=== PATIENT | female | born 1995 | race Hispanic/Latino ===

== ENCOUNTER 2017-09-23 12:34 | Observation (INO) | payer MEDICAID ==
[2017-09-23] MEDS ORDERED: NA CHLORIDE 0.9% 1,000 ML ONE (13:31)
[2017-09-23 14:32] LABS: Urine Bacteria <20 /HPF (<20); Urine Culture Reflex Order NOT NEEDED; Urine RBC <5 /HPF (NONE SEEN)
[2017-09-23 14:32] LABS: Absolute Lymphocytes (CBC) 1.1 K/uL (0.7-4.9); Absolute Monocytes 0.3 K/uL (0.1-1.3); Absolute Neutrophil 10.3 K/uL (1.8-8.0); Basophils % 0.2 % (0-1.3); Eosinophils % 0.3 % (0-4.4); Hematocrit 39.5 % (36.0-45.0); Lymphocytes % 9.2 % (15.3-44.8); MCH 29.2 pg (27.0-35.0); MCV 88.6 fL (80-100); MPV 8.5 fL (7.6-11.3); Monocytes % 2.8 % (3.3-12.3); RBC Red Blood Cell Count 4.46 M/uL (3.86-4.86)
[2017-09-23 14:34] LABS: Urine Blood NEGATIVE (NEG); Urine Glucose NEGATIVE (NEG); Urine Protein NEGATIVE (NEG)
[2017-09-23 14:47] LABS: Bicarbonate 21 mEq/L (21-31); Glucose Level 101 mg/dL (65-120); Lipase 23 U/L (22-51); Potassium 3.7 mEq/L (3.6-5.0); Sodium Level 133 mEq/L (135-145)
--- NOTE | 2017-09-23 14:50 | RAD REPORT ---
EXAM DESCRIPTION: US - Abdomen Exam Limited - 09/23/2017 1:46 pm CLINICAL HISTORY: Abdominal pain. COMPARISON: None. FINDINGS: Multiple gallstones are present. The gallbladder wall is mildly thickened. The biliary tree is normal caliber. IMPRESSION: Cholelithiasis. Mild gallbladder wall thickening may indicate acute cholecystitis
[2017-09-23 14:53] LABS: ALT/SGPT 28 IU/L (10-60); AST/SGOT 40 IU/L (10-42); Albumin 3.4 g/dL (3.2-5.5); Alkaline Phosphatase 111 IU/L (42-121); BUN Blood Urea Nitrogen 9 mg/dL (6-20); Bilirubin Direct 0.1 mg/dL (0-0.2); Bilirubin Total 0.4 mg/dL (0.3-1.2); Protein, Total 7.6 g/dL (6.0-8.3)
--- NOTE | 2017-09-23 15:15 | EDPHYS ---
Physician Documentation [facility] Name: Yandy Wells Age: 22 yrs Sex: Female : 1995 Arrival Date: 09/23/2017 Time: 12:36 Bed 28 Private MD: out of town, doctor ED Physician Benjamin Calles HPI: 09/23 14:05 This 22 yrs old Female presents to ER via Ambulatory with complaints of 25 wks snw , Vomiting/Diarrhea. 14:05 The patient presents to the emergency department with nausea, vomiting, diarrhea. snw Onset: The symptoms/episode began/occurred suddenly, yesterday. Possible causes: unknown, pts is 25 wks , son recently had stomach virus. The symptoms are aggravated by food . Associated signs and symptoms: Pertinent positives: abdominal pain, sharp epigastric pain, N/V/D. Severity of symptoms: At their worst the symptoms were moderate. It is unknown whether or not the patient has had similar symptoms in the past. It is unknown whether or not the patient has recently seen a physician. pt has medications for reflux and nausea. 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 - Social history:: Smoking status: Patient uses tobacco products. - Ebola Screening: : No symptoms or risks identified at this time. ROS: 14:02 Constitutional: Negative for fever, chills, and weight loss, Eyes: Negative for injury, snw pain, redness, and discharge, ENT: Negative for injury, pain, and discharge, Neck: Negative for injury, pain, and swelling, Cardiovascular: Negative for chest pain, palpitations, and edema, Respiratory: Negative for shortness of breath, cough, wheezing, and pleuritic chest pain, Abdomen/GI: Positive for abdominal pain, nausea, vomiting, diarrhea, denies constipation, Back: Negative for injury and pain, : Negative for injury, bleeding, discharge, and swelling, MS/Extremity: Negative for injury and deformity, Skin: Negative for injury, rash, and discoloration, Neuro: Negative for headache, weakness, numbness, tingling, and seizure. Exam: 14:00 Constitutional: This is a well developed, well nourished patient who is awake, alert, snw and in no acute distress. Head/Face: Normocephalic, atraumatic. Eyes: Pupils equal round and reactive to light, extra-ocular motions intact. Lids and lashes normal. Conjunctiva and sclera are non-icteric and not injected. Cornea within normal limits. Periorbital areas with no swelling, redness, or edema. ENT: Nares patent. No nasal discharge, no septal abnormalities noted. Tympanic membranes are normal and external auditory canals are clear. Oropharynx with no redness, swelling, or masses, exudates, or evidence of obstruction, uvula midline. Mucous membranes moist. Neck: Trachea midline, no thyromegaly or masses palpated, and no cervical lymphadenopathy. Supple, full range of motion without nuchal rigidity, or vertebral point tenderness. No Meningismus. Chest/axilla: Normal chest wall appearance and motion. Nontender with no deformity. No lesions are appreciated. Cardiovascular: Regular rate and rhythm with a normal S1 and S2. No gallops, murmurs, or rubs. Normal PMI, no JVD. No pulse deficits. Respiratory: Lungs have equal breath sounds bilaterally, clear to auscultation and percussion. No rales, rhonchi or wheezes noted. No increased work of breathing, no retractions or nasal flaring. Back: No spinal tenderness. No costovertebral tenderness. Full range of motion. Skin: Warm, dry with normal turgor. Normal color with no rashes, no lesions, and no evidence of cellulitis. MS/ Extremity: Pulses equal, no cyanosis. Neurovascular intact. Full, normal range of motion. Neuro: Awake and alert, GCS 15, oriented to person, place, time, and situation. Cranial nerves II-XII grossly intact. Motor strength 5/5 in all extremities. Sensory grossly intact. Cerebellar exam normal. Normal gait. Psych: Awake, alert, with orientation to person, place and time. Behavior, mood, and affect are within normal limits. 14:00 Abdomen/GI: Inspection: gravid appearance, is noted, Bowel sounds: normal, Palpation: soft. Vital Signs: 12:46 BP 128 / 84; Pulse 102; Resp 16; Temp 98.1; Pulse Ox 98% on R/A; Weight 93.89 kg; aj Height 5 ft. 3 in. (160.02 cm); 14:30 BP 122 / 71; Pulse 98; Resp 15; Pulse Ox 100% on R/A; lk1 15:30 BP 119 / 73; Pulse 111; Resp 16; Pulse Ox 99% on R/A; lk1 16:30 BP 109 / 64; Pulse 102; Resp 15; Pulse Ox 100% on R/A; lk1 12:46 Body Mass Index 36.67 (93.89 kg, 160.02 cm) aj MDM: 13:21 Patient medically screened. snw 15:14 Data reviewed: vital signs, nurses notes. Data interpreted: Pulse oximetry: on room air snw is 100 %. Interpretation: normal. Counseling: I had a detailed discussion with the patient and/or guardian regarding: the historical points, exam findings, and any diagnostic results supporting the discharge/admit diagnosis, lab results, radiology results, the need for further work-up and treatment in the hospital. Physician consultation: Jovan Wilcox MD was called at 15:14, was contacted at 15:14, regarding admission, to the medical/surgical unit. would like consultation with Dr. Dr. Elder. 09/23 13:20 Order name: Basic Metabolic Panel; Complete Time: 15:03 snw 09/23 13:20 Order name: CBC with Diff; Complete Time: 15:03 snw 09/23 13:20 Order name: Hepatic Function; Complete Time: 15:03 snw 09/23 13:20 Order name: Lipase; Complete Time: 15:03 snw 09/23 13:20 Order name: Urine Microscopic Only; Complete Time: 14:34 snw 09/23 14:15 Order name: Urine Dipstick--Ancillary (enter results); Complete Time: 15:03 09/23 13:20 Order name: IV Saline Lock; Complete Time: 14:19 snw 09/23 13:20 Order name: Labs collected and sent; Complete Time: 14:20 snw 09/23 13:20 Order name: Urine Dipstick-Ancillary (obtain specimen); Complete Time: 14:17 snw 09/23 13:20 Order name: FHT's; Complete Time: 14:19 snw 09/23 13:26 Order name: US Abdomen Limited; Complete Time: 15:03 snw Administered Medications: 14:00 Drug: NS 0.9% 1000 ml Route: IV; Rate: 1 bolus; Site: right antecubital; lk1 15:30 Follow up: Response: No adverse reaction; IV Status: Completed infusion lk1 15:35 Drug: Zosyn 3.375 grams Route: IVPB; Infused Over: 60 mins; Site: right antecubital; lk1 16:30 Follow up: Response: No adverse reaction; IV Status: Completed infusion lk1 Disposition: 22:14 Co-signature as Attending Physician, Benjamin Calles MD I agree with the assessment and kdr plan of care. Disposition: 09/23/17 15:14 Hospitalization ordered by Jovan Wilcox for Inpatient Admission. Preliminary diagnosis are Cholecystitis, Cholelithiasis, state. - Bed requested for Telemetry/MedSurg (Inpatient). - Status is Inpatient Admission. lk1 - Condition is Stable. - Problem is new. - Symptoms are unchanged. UTI on Admission? No Signatures: Dispatcher [employer] EDMS Alejandra Balbuena Amanda, SARA RN Benjamin Ureña MD MD [facility] [address] Macie Patel, DIGITAL PROJECT COORDINATOR-C DIGITAL PROJECT COORDINATOR-[place] Kia Trotter, RN RN lk1 Corrections: (The following items were deleted from the chart) 16:52 15:14 Hospitalization Ordered by Jovan Wilcox MD for Inpatient Admission. Preliminary bd diagnosis is Cholecystitis; Cholelithiasis; state. Bed requested for Telemetry/MedSurg (Inpatient). Status is Inpatient Admission. Condition is Stable. Problem is new. Symptoms are unchanged. UTI on Admission? No. snw 18:03 16:52 09/23/2017 15:14 Hospitalization Ordered by Jovan Wilcox MD for Inpatient lk1 Admission. Preliminary diagnosis is Cholecystitis; Cholelithiasis; state. Bed requested for Telemetry/MedSurg (Inpatient). Status is Inpatient Admission. Condition is Stable. Problem is new. Symptoms are unchanged. UTI on Admission? No. bd
--- NOTE | 2017-09-23 15:15 | ER ---
Nurse's Notes [facility] Name: Yandy Wells Age: 22 yrs Sex: Female : 1995 Arrival Date: 09/23/2017 Time: 12:36 Bed 28 Private MD: out of town, doctor Diagnosis: Cholecystitis;Cholelithiasis; state Presentation: 09/23 12:44 Presenting complaint: Patient states: Epigastric pain and vomiting that started this aj AM. Patient reports being 25 weeks , denies bleeding or lower abdominal pain. Transition of care: patient was not received from another setting of care. Onset of symptoms was September 23, 2017. Care prior to arrival: None. 12:44 Method Of Arrival: Ambulatory aj 12:44 Acuity: NELLIE 3 aj 15:45 Risk Assessment: Do you want to hurt yourself or someone else? Patient reports no lk1 desire to harm self or others. Initial Sepsis Screen: Does the patient meet any 2 criteria? No. Patient's initial sepsis screen is negative. Does the patient have a suspected source of infection? No. Patient's initial sepsis screen is negative. Triage Assessment: 12:46 General: Appears in no apparent distress. comfortable, Behavior is calm, cooperative, aj appropriate for age. Pain: Complains of pain in epigastric area. Neuro: Level of Consciousness is awake, alert, obeys commands, Oriented to person, place, time, situation, Appropriate for age. Respiratory: Airway is patent Respiratory effort is even, unlabored, Respiratory pattern is regular, symmetrical. GI: Reports upper abdominal pain, epigastric pain, nausea. Derm: Skin is intact, is healthy with good turgor, Skin is pink, warm \T\ dry. normal. 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 - Social history:: Smoking status: Patient uses tobacco products. - Ebola Screening: : No symptoms or risks identified at this time. Screenin:21 Abuse screen: Denies threats or abuse. Denies injuries from another. Nutritional lk1 screening: No deficits noted. Tuberculosis screening: No symptoms or risk factors identified. Fall Risk None identified. Assessment: 14:22 General: Appears in no apparent distress. Behavior is calm, cooperative, appropriate lk1 for age. Pain: Complains of pain in epigastric area Pain currently is 6 out of 10 on a pain scale. Neuro: Level of Consciousness is awake, alert, obeys commands, Oriented to person, place, time, situation, Moves all extremities. Gait is steady, Speech is normal, Facial symmetry appears normal. Cardiovascular: Heart tones S1 S2 present Capillary refill < 3 seconds Patient's skin is warm and dry. Respiratory: Airway is patent Respiratory effort is even, unlabored, Respiratory pattern is regular, symmetrical, Breath sounds are clear bilaterally. GI: Reports nausea. : No signs and/or symptoms were reported regarding the genitourinary system. EENT: No signs and/or symptoms were reported regarding the EENT system. 15:46 Reassessment: Patient states IV site is hurting, will restart IV. lk1 Vital Signs: 12:46 BP 128 / 84; Pulse 102; Resp 16; Temp 98.1; Pulse Ox 98% on R/A; Weight 93.89 kg; aj Height 5 ft. 3 in. (160.02 cm); 14:30 BP 122 / 71; Pulse 98; Resp 15; Pulse Ox 100% on R/A; lk1 15:30 BP 119 / 73; Pulse 111; Resp 16; Pulse Ox 99% on R/A; lk1 16:30 BP 109 / 64; Pulse 102; Resp 15; Pulse Ox 100% on R/A; lk1 12:46 Body Mass Index 36.67 (93.89 kg, 160.02 cm) Vitals: 14:21 Heart Tones 122. lk1 ED Course: 12:36 Patient arrived in ED. mr 12:37 out of town, doctor is Private Physician. mr 12:46 Triage completed. aj 12:46 Arm band placed on left wrist. Patient placed in an exam room. aj 13:08 Macie Patel [facility]NP-C [facility]. snw 13:08 Benjamin Calles MD is Attending Physician. snw 13:12 Kia Trotter, SARA is Primary Nurse. lk1 13:45 US Abdomen Limited In Process Unspecified. EDMS 13:55 Inserted saline lock: 22 gauge in right antecubital area, using aseptic technique. lk1 Blood collected. Missed attempt(s): 22 gauge in left antecubital area. Bleeding controlled, band aid applied, catheter tip intact. 14:23 Patient has correct armband on for positive identification. Bed in low position. Call lk1 light in reach. Side rails up X 1. Adult w/ patient. 15:13 Jovan Wilcox MD is Hospitalizing Provider. snw 15:59 Inserted saline lock: 20 gauge in left antecubital area, using aseptic technique. Blood ag collected. 16:00 IV discontinued, intact, bleeding controlled, No redness/swelling at site. Pressure ag dressing applied. 18:05 No provider procedures requiring assistance completed. Patient admitted, IV remains in lk1 place. Administered Medications: 14:00 Drug: NS 0.9% 1000 ml Route: IV; Rate: 1 bolus; Site: right antecubital; lk1 15:30 Follow up: Response: No adverse reaction; IV Status: Completed infusion lk1 15:35 Drug: Zosyn 3.375 grams Route: IVPB; Infused Over: 60 mins; Site: right antecubital; lk1 16:30 Follow up: Response: No adverse reaction; IV Status: Completed infusion lk1 Outcome: 15:14 Decision to Hospitalize by Provider. snw 18:03 Patient left the ED. lk1 18:07 Admitted to Med/surg accompanied by nurse, via wheelchair, room 231, with chart, Report lk1 called to SARA Sin 18:07 Condition: good 18:07 Discharge instructions given to patient, Instructed on the need for admit, Demonstrated understanding of instructions. Signatures: Dispatcher [employer] EDCarly Romo, RN Macie Xavier, BRUSH HOLDER ASSEMBLER-C BRUSH HOLDER ASSEMBLER-[place] Nannette Ruedaardo, Kia Morgan RN RN lk1
[2017-09-23] MEDS ORDERED: PIPER/TAZO/NS 3.375gm 3.375 GM/100 ML BAG ONE (15:35)
[2017-09-23] MEDS ORDERED: ACETAMINOPHEN 500 MG TAB PO PRN (17:19)
[2017-09-23] MEDS: D5 0.45 NS 1,000 ML IV SCH (17:19)
[2017-09-23 18:03] VITALS: BMI 37.1
[2017-09-23 18:10] VITALS: O2SAT 100
[2017-09-24] MEDS: PIPER/TAZO/NS 3.375gm 3.375 GM/100 ML BAG IVPB SCH ×2 (00:41→09:00)
[2017-09-24] MEDS: D5 0.45 NS 1,000 ML IV SCH ×2 (00:43→09:19)
--- NOTE | 2017-09-24 03:08 | HP ---
Date of Admission: 09/23/2017 Brief History Of Present Illness: The patient is a 22-year-old female, who presents to the ER with complaints of epigastric and right upper quadrant abdominal pain. She is 25 weeks' by her report. She has been eating fatty, greasy, fried meals like chicken wings and things of that nature, [employer], and fast food predominantly. The pain began approximately on Wednesday. It got b elliot, then worse, and she had an acute episode of sharp right upper quadrant and epigastric abdomina l pain beginning earlier today. As such, she came to the emergency room. She has had some nausea an d vomiting associated, and she states she has had some intermittent diarrhea as well. No other sympt oms that she appreciates. The pain is significantly better now after being in the emergency room. Past Medical History: Negative. Past Surgical History: . Home Medications: None. Allergies: NO KNOWN DRUG ALLERGIES. Gynecologic History: Last menstrual period on 03/13/2017. Social History: She uses cigarettes, but denies any other recreational drug use. Review of Systems: A 10-point review of systems other than HPI, denies. Physical Examination: Vital Signs: At the time of my examination, she is 5 feet 3 inches, 206 pounds. General: She is awake, alert, and oriented. Psychiatric: She is appropriate and conversive. HEENT: She is normocephalic. Her sclerae are anicteric. Her mucous membranes are moist. Oropharyn x is clear. Neck: Supple. No JVD. Chest: Normal to expansion and excursion. Cardiovascular: Regular rate and rhythm. Pulmonary: Clear to auscultation bilaterally. Abdomen: Soft, gravid abdomen, appears to be 25 cm/25-week gravid uterus. She has some mild epigast violet and right upper quadrant tenderness to deep palpation. Negative Schmitz sign. No rebound. No gu arding. No focal peritonitis. Extremities: No clubbing, cyanosis, or edema. Skin: Warm and dry. Laboratory Data: She had a laboratory exam reveals a white blood count of 11.8, hemoglobin 13.0, hem atocrit 39.5, platelet counts 402, and neutrophils 87.5. Sodium 133, potassium 3.7, chloride 105, ca rbon dioxide 21, BUN 9, creatinine 0.5, glucose is 101, total bilirubin 0.4, direct component 0.1. A ST 40, ALT 28, alkaline phosphatase 111. Lipase is 23. UA was 1+ ketones, 1+ leukocyte esterase, 5 to 10 epithelial cells. She had a right upper quadrant ultrasound, which was officially read as mult iple gallstones are present. The gallbladder wall is mildly thickened. Biliary tree is normal in ca liber. Official impression is cholelithiasis and mild gallbladder wall thickening, which may indicat e acute cholecystitis. Assessment And Plan: This is a 22-year-old, 25-week female who presents with signs and symp toms of a biliary colic. 1.IV fluid hydration. 2.N.p.o. status. 3.Antibiotic coverage with Zosyn 3.375 IV q.6. 4.Pain medication. 5.We will consult CLINICAL STAFF ANESTHESIOLOGIST on-call today for assist with management of care. 6.We will attempt nonoperative management initially to see if the patient responds to medical manage ment; should she not respond, she is within the second trimester, and we have discussed the possibili ty for laparoscopic cholecystectomy and the increased risk to herself as well as her child as this ad ds complexity to the case. However, the second trimester is a much better time to perform this than either the first or third should we have to make that determination. However, once again, we will try nonoperative management initially. The patient agrees to proceed as indicated. CONSUELO/JOSE DE JESUS Voice ID: [id number]
[2017-09-24 04:45] LABS: Absolute Lymphocytes (CBC) 2.3 K/uL (0.7-4.9); Absolute Monocytes 0.6 K/uL (0.1-1.3); Basophils % 0.4 % (0-1.3); Eosinophils % 2.8 % (0-4.4); Lymphocytes % 27.9 % (15.3-44.8); MCH 30.6 pg (27.0-35.0); MCV 88.1 fL (80-100); MPV 8.2 fL (7.6-11.3); Monocytes % 7.5 % (3.3-12.3); RBC Red Blood Cell Count 3.74 M/uL (3.86-4.86)
[2017-09-24 05:22] LABS: ALT/SGPT 26 IU/L (10-60); AST/SGOT 34 IU/L (10-42); Albumin 2.5 g/dL (3.2-5.5); Alkaline Phosphatase 89 IU/L (42-121); BUN Blood Urea Nitrogen 6 mg/dL (6-20); Bicarbonate 24 mEq/L (21-31); Bilirubin Direct 0.1 mg/dL (0-0.2); Bilirubin Total 0.5 mg/dL (0.3-1.2); Glucose Level 108 mg/dL (65-120); Potassium 3.8 mEq/L (3.6-5.0); Protein, Total 5.7 g/dL (6.0-8.3); Sodium Level 136 mEq/L (135-145)
--- NOTE | 2017-09-24 09:03 | RAD REPORT ---
EXAM DESCRIPTION: US - OB Complete - 09/24/2017 7:38 am CLINICAL HISTORY: Abdominal pain, pelvic pain, patient indicates prior outside OB ultrasound studies . The results of those examinations are unknown. COMPARISON: None. FINDINGS: A single breech presenting gestation is identified. The heart has a normal appearance. Hea rt rate normal. The intracranial contents and spine are grossly normal. Cerebral magnum is uppe r normal. A left-sided stomach bubble is seen with normal appearing bladder and kidneys. The cord, i nsertion site and anterior abdominal wall have normal appearance. No abnormalities are identifiable. measurements are as follows: BPD:6.39 Centimeters 25 weeks 6 days HC:23.91 Centimeters 26 weeks 0 days AC:21.80 Centimeters 26 weeks 2 days HL:4.32 Centimeters 25 weeks 6 days FL:4.60 Centimeters 25 weeks 2 days The estimated gestational age (EGA) is 25 weeks 6 days with an YUSUF of 01/01/2018. ratios are n ormal or within acceptable limits. The placenta is grade I, fundal anterior in location. No low-lying or placenta previa. The amniotic fluid volume is normal. MIC is still normal range 9.79 cm. IMPRESSION: 1. Single, breech gestation with an EGA of 25 weeks 6 days and an YUSUF of the 01/01/2018. Prior studies not available to assess interval growth. Calculated YUSUF closely approximates the LMP based due date. 2. No abnormalities are identifiable. ratios are normal or within acceptable limits. 3. Grade I, fundal anterior placenta with no low-lying or placenta previa. 4. Amniotic fluid volume is normal. MIC 9.79 cm. The
[2017-09-24 15:17] VITALS: BP 118/71; TEMP 97.3
== END 2017-09-24 13:04 | disposition home or self-care (01) ==
LOC: ER 12:34 → INTOOBSV 15:24 → ERHOLD 15:24 → 2ND 17:23
PROVIDERS: ADMIT Surgery; ATTEND Surgery
DX: O26.612 Liver and biliary tract disorders in pregnancy, second trimester (principal); K80.50 Calculus of bile duct without cholangitis or cholecystitis without obstruction; Z3A.25 25 weeks gestation of pregnancy
CPT/HCPCS: 36415; 76705; 76805; 80048; 80076; 81003; 81015; 83690; 85025; 96361; 96365; 99285; G0378; J2543; J7030

== ENCOUNTER 2018-01-26 23:31 | Emergency (ER) | payer MEDICAID ==
[2018-01-27 00:26] LABS: Urine Blood TRACE (NEG); Urine Glucose NEGATIVE (NEG); Urine Protein 1+ (NEG); Urine pH 7.5 (5.0-7.0)
[2018-01-27] MEDS ORDERED: NA CHLORIDE 0.9% 1,000 ML ONE (00:52)
[2018-01-27 01:08] LABS: Absolute Lymphocytes (CBC) 2.9 K/uL (0.7-4.9); Absolute Monocytes 0.7 K/uL (0.1-1.3); Absolute Neutrophil 8.1 K/uL (1.8-8.0); Basophils % 0.4 % (0-1.3); Eosinophils % 1.9 % (0-4.4); Hematocrit 38.7 % (36.0-45.0); Lymphocytes % 24.2 % (15.3-44.8); MCH 28.2 pg (27.0-35.0); MCV 84.3 fL (80-100); MPV 8.3 fL (7.6-11.3); Monocytes % 5.7 % (3.3-12.3)
[2018-01-27 01:28] LABS: Albumin 3.6 g/dL (3.4-5.0); Bilirubin Direct 0.1 mg/dL (0-0.2); Bilirubin Total 0.4 mg/dL (0.2-1.0); Potassium 4.1 mmol/L (3.5-5.1); Protein, Total 7.7 g/dL (6.4-8.2)
[2018-01-27] MEDS ORDERED: FENTANYL CITR 100 MCG/2 ML ONE (01:45)
--- NOTE | 2018-01-27 02:45 | EDPHYS ---
Physician Documentation [facility] Name: Yandy Wells Age: 22 yrs Sex: Female : 1995 Arrival Date: 01/26/2018 Time: 23:32 Bed 17 Private MD: ED Physician Louie Raymundo HPI: 01/27 00:57 This 22 yrs old Female presents to ER via Ambulatory with complaints of snw Abdominal Pain, Gallstones. 00:57 The patient presents with abdominal pain in the upper abdomen. Onset: The snw symptoms/episode began/occurred suddenly, just prior to arrival, s/p eating chicken fried steak, mashed potatoes. The symptoms do not radiate. Associated signs and symptoms: none. The symptoms are described as same feeling as the last episode of biliary colic. Modifying factors: The symptoms are alleviated by nothing, the symptoms are aggravated by food. Severity of pain: At its worst the pain was moderate. The patient has experienced a previous episode, approximately [address] Wilcox in the past for biliary colic but pt was . + three c-sections in the past, not currently . 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 - Social history:: Smoking status: Patient/guardian denies using tobacco. - Ebola Screening: : No symptoms or risks identified at this time. ROS: 01/27 00:56 Constitutional: Negative for fever, chills, and weight loss, Eyes: Negative for injury, snw pain, redness, and discharge, ENT: Negative for injury, pain, and discharge, Neck: Negative for injury, pain, and swelling, Cardiovascular: Negative for chest pain, palpitations, and edema, Respiratory: Negative for shortness of breath, cough, wheezing, and pleuritic chest pain, Back: Negative for injury and pain, : Negative for injury, bleeding, discharge, and swelling, MS/Extremity: Negative for injury and deformity, Skin: Negative for injury, rash, and discoloration, Neuro: Negative for headache, weakness, numbness, tingling, and seizure. Abdomen/GI: Positive for abdominal pain, of the right upper quadrant and left upper quadrant. Exam: 00:56 Constitutional: This is a well developed, well nourished patient who is awake, alert, snw and in no acute distress. Head/Face: Normocephalic, atraumatic. Eyes: Pupils equal round and reactive to light, extra-ocular motions intact. Lids and lashes normal. Conjunctiva and sclera are non-icteric and not injected. Cornea within normal limits. Periorbital areas with no swelling, redness, or edema. ENT: Nares patent. No nasal discharge, no septal abnormalities noted. Tympanic membranes are normal and external auditory canals are clear. Oropharynx with no redness, swelling, or masses, exudates, or evidence of obstruction, uvula midline. Mucous membranes moist. Neck: Trachea midline, no thyromegaly or masses palpated, and no cervical lymphadenopathy. Supple, full range of motion without nuchal rigidity, or vertebral point tenderness. No Meningismus. Chest/axilla: Normal chest wall appearance and motion. Nontender with no deformity. No lesions are appreciated. Cardiovascular: Regular rate and rhythm with a normal S1 and S2. No gallops, murmurs, or rubs. Normal PMI, no JVD. No pulse deficits. Respiratory: Lungs have equal breath sounds bilaterally, clear to auscultation and percussion. No rales, rhonchi or wheezes noted. No increased work of breathing, no retractions or nasal flaring. Back: No spinal tenderness. No costovertebral tenderness. Full range of motion. Skin: Warm, dry with normal turgor. Normal color with no rashes, no lesions, and no evidence of cellulitis. MS/ Extremity: Pulses equal, no cyanosis. Neurovascular intact. Full, normal range of motion. Neuro: Awake and alert, GCS 15, oriented to person, place, time, and situation. Cranial nerves II-XII grossly intact. Motor strength 5/5 in all extremities. Sensory grossly intact. Cerebellar exam normal. Normal gait. Psych: Awake, alert, with orientation to person, place and time. Behavior, mood, and affect are within normal limits. 00:56 Abdomen/GI: Inspection: abdomen appears normal, Bowel sounds: normal, Palpation: soft, moderate abdominal tenderness, in the right upper quadrant and left upper quadrant. Vital Signs: 01/26 23:53 BP 125 / 82; Pulse 92; Resp 18; Temp 98.7(O); Pulse Ox 96% ; Weight 86.18 kg; Height 5 ea ft. 3 in. (160.02 cm); Pain 9/10; 01/27 00:30 BP 115 / 67; Pulse 78; Resp 16; Pulse Ox 99% on R/A; lp1 01:27 BP 108 / 73; Pulse 83; Resp 16; Pulse Ox 100% on R/A; lp1 02:30 BP 104 / 64; Pulse 76; Resp 16; Pulse Ox 98% on R/A; lp1 01/26 23:53 Body Mass Index 33.66 (86.18 kg, 160.02 cm) ea MDM: 00:22 Patient medically screened. snw 02:43 Data reviewed: vital signs, nurses notes. Data interpreted: Pulse oximetry: on room air snw is 98 %. Interpretation: normal. Counseling: I had a detailed discussion with the patient and/or guardian regarding: the historical points, exam findings, and any diagnostic results supporting the discharge/admit diagnosis, lab results, the need for outpatient follow up, to return to the emergency department if symptoms worsen or persist or if there are any questions or concerns that arise at home. Response to treatment: the patient's symptoms have markedly improved after treatment. Special discussion: Based on the history and exam findings, there is no indication for further emergent testing or inpatient evaluation. I discussed with the patient/guardian the need to see the general surgeon for further evaluation of the symptoms. 01/27 00:02 Order name: Urine Dipstick--Ancillary (enter results); Complete Time: 00:30 ms 01/27 00:02 Order name: Urine --Ancillary (enter results); Complete Time: 00:30 ms 01/27 00:24 Order name: Basic Metabolic Panel; Complete Time: 01:28 snw 01/27 00:24 Order name: CBC with Diff; Complete Time: 01:18 snw 01/27 00:24 Order name: Hepatic Function; Complete Time: 01:28 snw 01/27 00:24 Order name: Lipase; Complete Time: :28 snw 01/27 00:24 Order name: IV Saline Lock; Complete Time: 00:57 snw 01/27 00:24 Order name: Labs collected and sent; Complete Time: 00:57 snw Administered Medications: 00:57 Drug: NS 0.9% 1000 ml Route: IV; Rate: 1 bolus; Site: left upper arm; lp1 02:46 Follow up: IV Status: Completed infusion; IV Intake: 1000ml lp1 01:44 Drug: fentaNYL (PF) 25 mcg Route: IVP; Site: left upper arm; lp1 02:46 Follow up: Response: Pain is decreased lp1 Disposition: 03:22 Co-signature as Attending Physician, Macie BAUTISTA I agree with the assessment tw4 and plan of care. Attestation: The patient's history, exam findings, diagnostics, and a summary of any interventions or procedures was reviewed in detail with Macie BAUTISTA. Disposition: 01/27/18 02:45 Discharged to Home. Impression: Upper abdominal pain, unspecified. - Condition is Stable. - Discharge Instructions: Abdominal Pain, Adult, Fat and Cholesterol Restricted Diet, Cholelithiasis. - Prescriptions for Bentyl 20 mg Oral Tablet - take 1 tablet by ORAL route every 6 hours As needed; 20 tablet. Diclofenac Sodium 75 mg Oral Tablet Sustained Release - take 1 tablet by ORAL route 2 times per day; 30 tablet. - Medication Reconciliation Form, Thank You Letter, Antibiotic Education, Prescription Opioid Use form. - Follow up: Emergency Department; When: As needed; Reason: Worsening of condition. Follow up: Jovan Wilcox MD; When: 1 - 2 days; Reason: Recheck today's complaints, Continuance of care, Re-evaluation by your physician. Signatures: Dispatcher [facility] Macie Patel FNP-C OSHA INSPECTOR-[address] Court Flores RN RN lp1 Hue Nguyen RN RN ea Wadley, Terrence, MD MD tw4 Corrections: (The following items were deleted from the chart) 01:03 00:25 Creatinine for Radiology+C.LAB.BRZ ordered. [facility] 02:48 02:45 01/27/2018 02:45 Discharged to Home. Impression: Upper abdominal pain, snw unspecified. Condition is Stable. Forms are Medication Reconciliation Form, Thank You Letter, Antibiotic Education, Prescription Opioid Use. Follow up: Private Physician; When: 2 - 3 days; Reason: Recheck today's complaints, Continuance of care, Re-evaluation by your physician. Follow up: Emergency Department; When: As needed; Reason: Worsening of condition. jonathan 03:08 02:48 01/27/2018 02:45 Discharged to Home. Impression: Upper abdominal pain, lp1 unspecified. Condition is Stable. Discharge Instructions: Abdominal Pain, Adult, Fat and Cholesterol Restricted Diet, Cholelithiasis. Prescriptions for Bentyl 20 mg Oral Tablet - take 1 tablet by ORAL route every 6 hours As needed; 20 tablet, Diclofenac Sodium 75 mg Oral Tablet Sustained Release - take 1 tablet by ORAL route 2 times per day; 30 tablet. and Forms are Medication Reconciliation Form, Thank You Letter, Antibiotic Education, Prescription Opioid Use. Follow up: Emergency Department; When: As needed; Reason: Worsening of condition. Follow up: Jovan Wilcox; When: 1 - 2 days; Reason: Recheck today's complaints, Continuance of care, Re-evaluation by your physician. jonathan
--- NOTE | 2018-01-27 02:45 | ER ---
Nurse's Notes [facility] Name: Yandy Wells Age: 22 yrs Sex: Female : 1995 Arrival Date: 01/26/2018 Time: 23:32 Bed 17 Private MD: Diagnosis: Upper abdominal pain, unspecified Presentation: 01/26 23:49 Presenting complaint: Patient states: She started having left upper quadrant and ea epigastric pain that started today. Pt reports she was diagnosed with gallstones two months ago and was hospitalized for them but was unable to get surgery because she was at the time. Transition of care: patient was not received from another setting of care. Onset of symptoms was January 26, 2018. Risk Assessment: Do you want to hurt yourself or someone else? Patient reports no desire to harm self or others. Initial Sepsis Screen: Does the patient meet any 2 criteria? No. Patient's initial sepsis screen is negative. Does the patient have a suspected source of infection? No. Patient's initial sepsis screen is negative. Care prior to arrival: None. 23:49 Method Of Arrival: Ambulatory ea 23:49 Acuity: NELLIE 3 ea Triage Assessment: 23:54 General: Appears uncomfortable, Behavior is calm, cooperative, appropriate for age. ea Pain: Complains of pain in epigastric area and left upper quadrant. GI: Reports upper abdominal pain. 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 - Social history:: Smoking status: Patient/guardian denies using tobacco. - Ebola Screening: : No symptoms or risks identified at this time. Screenin:54 Abuse screen: Denies threats or abuse. Nutritional screening: No deficits noted. ea Tuberculosis screening: No symptoms or risk factors identified. Fall Risk None identified. Assessment: 01/27 00:08 General: Appears in no apparent distress. Behavior is calm, cooperative, appropriate lp1 for age. Pain: Complains of pain in epigastric area Pain currently is 5 out of 10 on a pain scale. Quality of pain is described as aching. Neuro: Level of Consciousness is awake, alert, obeys commands. Cardiovascular: Patient's skin is warm and dry. Respiratory: Respiratory effort is even, unlabored. GI: Abdomen is non-distended, Bowel sounds present X 4 quads. Abdomen is tender to palpation in epigastric area Reports vomiting. : No signs and/or symptoms were reported regarding the genitourinary system. EENT: No signs and/or symptoms were reported regarding the EENT system. Derm: Skin is pink, warm \T\ dry. Musculoskeletal: Circulation, motion, and sensation intact. 01:00 Reassessment: Patient appears in no apparent distress at this time. No changes from lp1 previously documented assessment. Patient and/or family updated on plan of care and expected duration. Pain level reassessed. 02:00 Reassessment: Patient appears in no apparent distress at this time. No changes from lp1 previously documented assessment. Vital Signs: 01/26 23:53 BP 125 / 82; Pulse 92; Resp 18; Temp 98.7(O); Pulse Ox 96% ; Weight 86.18 kg; Height 5 ea ft. 3 in. (160.02 cm); Pain 9/10; 01/27 00:30 BP 115 / 67; Pulse 78; Resp 16; Pulse Ox 99% on R/A; lp1 01:27 BP 108 / 73; Pulse 83; Resp 16; Pulse Ox 100% on R/A; lp1 02:30 BP 104 / 64; Pulse 76; Resp 16; Pulse Ox 98% on R/A; lp1 01/26 23:53 Body Mass Index 33.66 (86.18 kg, 160.02 cm) ea ED Course: 01/26 23:32 Patient arrived in ED. al2 23:50 [facility] snw 23:50 Louie Raymundo MD is Attending Physician. snw 23:51 Triage completed. ea 23:54 Allergy band placed. Placed in gown. Bed in low position. Call light in reach. Side ea rails up X 1. 23:55 Arm band placed on right wrist. Patient placed in an exam room, on a stretcher, on ea pulse oximetry. 01/27 00:08 [address] Flores RN is Primary Nurse. lp1 00:37 Missed attempt(s): 22 gauge in left forearm. lp1 02:48 Jovan Wilcox MD is Referral Physician. snw 03:07 No provider procedures requiring assistance completed. IV discontinued, No lp1 redness/swelling at site. Pressure dressing applied. Administered Medications: 00:57 Drug: NS 0.9% 1000 ml Route: IV; Rate: 1 bolus; Site: left upper arm; lp1 02:46 Follow up: IV Status: Completed infusion; IV Intake: 1000ml lp1 01:44 Drug: fentaNYL (PF) 25 mcg Route: IVP; Site: left upper arm; lp1 02:46 Follow up: Response: Pain is decreased lp1 Intake: 02:46 IV: 1000ml; Total: 1000ml. lp1 Outcome: 02:45 Discharge ordered by . snw 03:08 Discharged to home ambulatory, with significant other. lp1 03:08 Condition: good 03:08 Discharge instructions given to patient, Instructed on discharge instructions, follow up and referral plans. medication usage, Demonstrated understanding of instructions, follow-up care, medications, Prescriptions given X 2. 03:08 Patient left the ED. lp1 Signatures: Macie Patel, NUCLEAR FUELS RESEARCH ENGINEER-C NUCLEAR FUELS RESEARCH ENGINEER-[address] Court Flores, RN RN lp1 Hue Nguyen, RN RN Rajni Torres
[2018-01-27 03:12] VITALS: TEMP 98.7
[2018-01-27 03:16] VITALS: BP 104/64; O2SAT 98
== END 2018-01-27 03:08 | disposition home or self-care (01) ==
LOC: ER 23:31
DX: R10.10 Upper abdominal pain, unspecified (principal); D64.9 Anemia, unspecified
CPT/HCPCS: 36415; 80048; 80076; 81003; 81025; 83690; 85025; 96361; 96374; 99283; J3010; J7030

== ENCOUNTER 2018-10-13 12:07 | Emergency (ER) | payer BC, MEDICAID ==
[2018-10-13 13:24] LABS: Basophils % 0.3 % (0-1.3); Eosinophils % 1.3 % (0-4.4); Hematocrit 44.4 % (36.0-45.0); Lymphocytes % 7.9 % (15.3-44.8); Monocytes % 3.7 % (3.3-12.3); RBC Red Blood Cell Count 5.16 M/uL (3.86-4.86)
[2018-10-13] MEDS ORDERED: NA CHLORIDE 0.9% 1,000 ML ONE ×2 (13:33→14:32)
[2018-10-13] MEDS ORDERED: ONDANSETRON 4 MG/2 ML VIAL ONE (13:33)
[2018-10-13] MEDS ORDERED: MEPERIDINE HCL 25 MG/0.5 ML ONE (13:33)
--- NOTE | 2018-10-13 13:37 | RAD REPORT ---
EXAM DESCRIPTION: US - Abdomen Exam Limited - 10/13/2018 1:00 pm CLINICAL HISTORY: Abdominal pain COMPARISON: August 2017 FINDINGS: Numerous mobile sub-centimeter gallstones are identified. The pattern is similar to the pr ior study. There is no wall thickening or pericholecystic fluid. No common duct stone or biliary tree dilatation identified. IMPRESSION: 1. Multiple sub centimeter mobile gallstones similar to August 2017. 2. No other significant gallbladder or biliary tree finding.
[2018-10-13 13:43] LABS: ALT/SGPT 34 U/L (12-78); AST/SGOT 21 U/L (15-37); Alkaline Phosphatase 111 U/L (45-117); BUN Blood Urea Nitrogen 13 mg/dL (7-18); Bicarbonate 26 mmol/L (21-32); Bilirubin Direct 0.1 mg/dL (0-0.2); Bilirubin Total 0.7 mg/dL (0.2-1.0); Glucose Level 95 mg/dL (74-106); Lipase 95 U/L (73-393); Protein, Total 8.7 g/dL (6.4-8.2); Sodium Level 137 mmol/L (136-145)
[2018-10-13 14:11] LABS: Blood Morphology Comment NOT SEEN (NOT SEEN); Platelet Estimate ADEQ; Platelets, Giant NOTED; Urine White Blood Cell Casts OK
[2018-10-13] MEDS ORDERED: METRONIDAZOLE 500mg IVPB 500 MG/100 ML BAG IV ONE (14:32)
[2018-10-13] MEDS ORDERED: CEFOXITIN/SWI 1gm 1 GM/10 ML SYR ONE (14:32)
[2018-10-13] MEDS ORDERED: NA CHLORIDE 0.9% 100 ML IV ONE (14:32)
[2018-10-13 16:33] LABS: Urine Bacteria <20 /HPF (<20); Urine Culture Reflex Order NOT NEEDED; Urine RBC NONE SEEN /HPF (NONE SEEN)
[2018-10-13 17:57] LABS: Urine Blood NEGATIVE (NEG); Urine Glucose NEGATIVE (NEG); Urine Protein NEGATIVE (NEG); Urine Specific Gravity 1.025 (1.005-1.030); Urine pH 5.5 (5.0-7.0)
--- NOTE | 2018-10-13 18:40 | EKG ---
Test Date: 2018-10-13 Test Time: 12:46:11 Vice President Of News: MONSE/S MEASUREMENT RESULTS: Intervals: Rate: 107 OR: 140 QRSD: 78 QT: 318 QTc: 424 [place]: P: 55 OR: 140 QRS: 70 T: 45 INTERPRETIVE STATEMENTS: Sinus tachycardia Otherwise normal ECG No previous ECG available for comparison Electronically Signed On 10-13-18 18:38:57 CDT by Nicholas Woodard
--- NOTE | 2018-10-13 18:57 | ER ---
Nurse's Notes [facility] Name: Yandy Wells Age: 23 yrs Sex: Female : 1995 Arrival Date: 10/13/2018 Time: 12:10 Bed 8 Private MD: Diagnosis: Cholelithiasis;Right upper quadrant abdominal tenderness Presentation: 10/13 12:19 Presenting complaint: Mother states: "Since 3 in the morning she has been having aj1 vomiting and diarrhea and she has had a pain on her right side of her belly. She was here last year and she had stones in her gallbladder". Transition of care: patient was not received from another setting of care. Onset of symptoms was October 13, 2018 at 03:00. Risk Assessment: Do you want to hurt yourself or someone else? Patient reports no desire to harm self or others. Initial Sepsis Screen: Does the patient meet any 2 criteria? HR > 90 bpm. No. Patient's initial sepsis screen is negative. Does the patient have a suspected source of infection? Yes: Acute abdominal pain. Care prior to arrival: None. 12:19 Method Of Arrival: Ambulatory aj1 12:19 Acuity: NELLIE 3 aj1 Triage Assessment: 12:22 General: Appears in no apparent distress. uncomfortable, Behavior is calm, cooperative, aj1 appropriate for age. Pain: Complains of pain in right upper quadrant Pain currently is 9 out of 10 on a pain scale. Neuro: Level of Consciousness is awake, alert, obeys commands, Oriented to person, place, time, situation. Cardiovascular: Patient's skin is warm and dry. Respiratory: Airway is patent Respiratory effort is even, unlabored, Respiratory pattern is regular, symmetrical. GI: Reports lower abdominal pain, diarrhea, nausea, vomiting. CONCRETE BLOCK MASON: 12:22 LMP 09/28/2018 aj1 Historical: - Allergies: 12:22 No Known Allergies; aj1 - Home Meds: 12:22 None [Active]; aj1 - PMHx: 12:22 Anemia; GALLSTONES; aj1 - PSHx: 12:22 ; aj1 - Immunization history:: Flu vaccine is not up to date. - Social history:: Smoking status: Patient/guardian denies using tobacco. - Ebola Screening: : Patient denies travel to an Ebola-affected area in the 21 days before illness onset. Screenin:33 Abuse screen: Denies threats or abuse. Denies injuries from another. Nutritional bp screening: No deficits noted. Tuberculosis screening: No symptoms or risk factors identified. Fall Risk None identified. Assessment: 12:30 General: SEE TRIAGE NOTE. bp 13:00 Reassessment: PT RETURNED FROM U/S. UOP PENDING. bp 13:00 GI: Bowel sounds present X 4 quads. Abd is soft X 4 quads. bp 15:00 Reassessment: ALL CURRENT ORDERS COMPLETED, IVF INFUSING. bp 16:56 Reassessment: PT D/C HOME AMBULATORY WITH FAMILY, DX WITH CHOLELITHIASIS. bp Vital Signs: 12:22 BP 143 / 74; Pulse 131; Resp 22; Temp 98.7; Pulse Ox 100% on R/A; Weight 90.72 kg (R); aj1 Height 5 ft. 3 in. (160.02 cm) (R); Pain 9/10; 13:00 BP 119 / 77; Pulse 123; Resp 16; Pulse Ox 94% ; bp 14:00 BP 112 / 70; Pulse 107; Resp 16; Pulse Ox 96% ; bp 16:30 BP 121 / 78; Pulse 94; Resp 16; Temp 98; Pulse Ox 98% ; bp 12:22 Body Mass Index 35.43 (90.72 kg, 160.02 cm) aj1 ED Course: 12:10 Patient arrived in ED. as 12:21 Triage completed. aj1 12:22 Arm band placed on Patient placed in an exam room. aj1 12:24 Ever Worley, RN is Primary Nurse. bp 12:31 John Fowler PA is PHCP. jr8 12:31 Benjamin Calles MD is Attending Physician. jr8 12:33 Patient has correct armband on for positive identification. Bed in low position. Call bp light in reach. Side rails up X2. Adult w/ patient. 12:49 EKG done, by missile and missile checkout technician. reviewed by John BARGER. at1 13:00 Inserted saline lock: 20 gauge in right antecubital area, using aseptic technique. bp Blood collected. 13:01 US Abdomen Limited In Process Unspecified. EDMS 16:36 Shawn Quiñonez MD is Referral Physician. jr8 16:57 No provider procedures requiring assistance completed. IV discontinued, intact, bp bleeding controlled, No redness/swelling at site. Pressure dressing applied. Administered Medications: 13:00 Drug: NS 0.9% 1000 ml Route: IV; Rate: 1000 ml; Site: right antecubital; bp 13:00 Drug: Demerol 25 mg Route: IVP; Site: right antecubital; bp 15:38 Follow up: Response: No adverse reaction bp 13:00 Drug: Zofran 4 mg Route: IVP; Site: right antecubital; bp 15:39 Follow up: Response: No adverse reaction bp 14:30 Drug: Mefoxin 1 grams Route: IVPB; Infused Over: 30 mins; Site: right antecubital; bp 16:59 Follow up: IV Status: Completed infusion; IV Intake: 100ml bp 15:10 Drug: Flagyl 500 mg Volume: 100 ml; Route: IVPB; Rate: 200 ml/hr; Infused Over: 30 bp mins; Site: right antecubital; 16:58 Follow up: IV Status: Completed infusion; IV Intake: 100ml bp 15:10 Drug: NS 0.9% 1000 ml Route: IV; Rate: 1000 ml; Site: right antecubital; bp 16:58 Follow up: IV Status: Completed infusion; IV Intake: 1000ml bp Intake: 16:58 IV: 1000ml; Total: 1000ml. bp 16:58 IV: 100ml; Total: 1100ml. bp 16:59 IV: 100ml; Total: 1200ml. bp Outcome: 16:36 Discharge ordered by MD. levy 16:57 Discharged to home ambulatory, with family. bp 16:57 Condition: stable 16:57 Discharge instructions given to patient, family, Instructed on discharge instructions, follow up and referral plans. medication usage, Demonstrated understanding of instructions, follow-up care, medications, Prescriptions given X 2. 16:59 Patient left the ED. bp Signatures: Dispatcher [employer] EDDhara Glaser RN RN Romelia Gross Josh, PA PA jr8 Carly Swann, education reporter EKG Tat1 Ever Worley RN RN bp
--- NOTE | 2018-10-13 18:57 | EDPHYS ---
Physician Documentation [facility] Name: Yandy Wells Age: 23 yrs Sex: Female : 1995 Arrival Date: 10/13/2018 Time: 12:10 Bed 8 Private MD: ED Physician Benjamin Calles HPI: 10/13 14:20 This 23 yrs old Female presents to ER via Ambulatory with complaints of jr8 Abdominal Pain, Vomiting/Diarrhea. 14:20 The patient presents with abdominal pain in the right upper quadrant. Onset: The jr8 symptoms/episode began/occurred acutely, today. The symptoms radiate to right back. Associated signs and symptoms: Pertinent positives: nausea, vomiting, and diarrhea. The symptoms are described as stabbing. Modifying factors: The symptoms are alleviated by nothing, the symptoms are aggravated by food. Severity of pain: At its worst the pain was moderate in the emergency department the pain is unchanged. The patient has experienced a previous episode. The patient has not recently seen a physician. History of gall stones. This morning started with RUQ abdominal pain going to back with n/v/d. Denies fevers. NEWSROOM INTERN: 12:22 LMP 09/28/2018 aj1 Historical: - Allergies: 12:22 No Known Allergies; aj1 - Home Meds: 12:22 None [Active]; aj1 - PMHx: 12:22 Anemia; GALLSTONES; aj1 - PSHx: 12:22 ; aj1 - Immunization history:: Flu vaccine is not up to date. - Social history:: Smoking status: Patient/guardian denies using tobacco. - Ebola Screening: : Patient denies travel to an Ebola-affected area in the 21 days before illness onset. ROS: 14:20 Eyes: Negative for injury, pain, redness, and discharge, ENT: Negative for injury, jr8 pain, and discharge, Neck: Negative for injury, pain, and swelling, Cardiovascular: Negative for chest pain, palpitations, and edema, Respiratory: Negative for shortness of breath, cough, wheezing, and pleuritic chest pain, Back: Negative for injury and pain, MS/Extremity: Negative for injury and deformity, Skin: Negative for injury, rash, and discoloration, Neuro: Negative for headache, weakness, numbness, tingling, and seizure. 14:20 Abdomen/GI: Positive for abdominal pain, nausea, vomiting, and diarrhea, Negative for abdominal cramps, abdominal distension, anorexia, dysphagia, hematemesis, black/tarry stool, rectal pain, rectal bleeding, bowel incontinence, flatulence. Exam: 14:20 Eyes: Pupils equal round and reactive to light, extra-ocular motions intact. Lids and jr8 lashes normal. Conjunctiva and sclera are non-icteric and not injected. Cornea within normal limits. Periorbital areas with no swelling, redness, or edema. ENT: Nares patent. No nasal discharge, no septal abnormalities noted. Tympanic membranes are normal and external auditory canals are clear. Oropharynx with no redness, swelling, or masses, exudates, or evidence of obstruction, uvula midline. Mucous membranes moist. Neck: Trachea midline, no thyromegaly or masses palpated, and no cervical lymphadenopathy. Supple, full range of motion without nuchal rigidity, or vertebral point tenderness. No Meningismus. Cardiovascular: Regular rate and rhythm with a normal S1 and S2. No gallops, murmurs, or rubs. Normal PMI, no JVD. No pulse deficits. Respiratory: Lungs have equal breath sounds bilaterally, clear to auscultation and percussion. No rales, rhonchi or wheezes noted. No increased work of breathing, no retractions or nasal flaring. Back: No spinal tenderness. No costovertebral tenderness. Full range of motion. Skin: Warm, dry with normal turgor. Normal color with no rashes, no lesions, and no evidence of cellulitis. MS/ Extremity: Pulses equal, no cyanosis. Neurovascular intact. Full, normal range of motion. Neuro: Awake and alert, GCS 15, oriented to person, place, time, and situation. Cranial nerves II-XII grossly intact. Motor strength 5/5 in all extremities. Sensory grossly intact. Cerebellar exam normal. Normal gait. 14:20 Abdomen/GI: Inspection: obese Bowel sounds: active, all quadrants, Palpation: soft, in all quadrants, moderate abdominal tenderness, in the right upper quadrant, mass, is not appreciated, rebound tenderness, is not appreciated, voluntary guarding, is not appreciated, involuntary guarding, is not appreciated, no appreciated organomegaly, Indicators: McBurney's point is not tender, Schmitz's sign is positive, Rovsing's sign is negative, Liver: no appreciated palpable abnormalities. Vital Signs: 12:22 BP 143 / 74; Pulse 131; Resp 22; Temp 98.7; Pulse Ox 100% on R/A; Weight 90.72 kg (R); aj1 Height 5 ft. 3 in. (160.02 cm) (R); Pain 9/10; 13:00 BP 119 / 77; Pulse 123; Resp 16; Pulse Ox 94% ; bp 14:00 BP 112 / 70; Pulse 107; Resp 16; Pulse Ox 96% ; bp 16:30 BP 121 / 78; Pulse 94; Resp 16; Temp 98; Pulse Ox 98% ; bp 12:22 Body Mass Index 35.43 (90.72 kg, 160.02 cm) aj1 MDM: 12:31 Patient medically screened. jr8 16:34 Data reviewed: vital signs, nurses notes, lab test result(s), radiologic studies, jr8 ultrasound. Data interpreted: Pulse oximetry: on room air is 96 %. Interpretation: normal. Counseling: I had a detailed discussion with the patient and/or guardian regarding: the historical points, exam findings, and any diagnostic results supporting the discharge/admit diagnosis, lab results, radiology results. ED course: Discussed case with Dr. Quiñonez. Wants to try another liter of fluids and see if patient tolerates PO and is still comfortable. If so would see her in clinic on Wednesday. . ED course: Patient able to tolerate PO fluids and is feeling much better. VS improved. Will send home to f/u with surgery on Wednesday. 10/13 12:37 Order name: Basic Metabolic Panel [facility] 10/13 12:37 Order name: CBC with Diff [facility] 10/13 12:37 Order name: Creatinine for Radiology; Complete Time: 14:09 [facility] 10/13 12:37 Order name: Hepatic Function; Complete Time: 14:09 [facility] 10/13 12:37 Order name: Lipase; Complete Time: 14: [facility] 10/13 12:38 Order name: Basic Metabolic Panel; Complete Time: 14:09 [facility] 10/13 12:38 Order name: CBC with Automated Diff; Complete Time: 14:19 [facility] 10/13 12:40 Order name: US Abdomen Limited; Complete Time: 14:19 [facility] 10/13 13:31 Order name: CBC Smear Scan; Complete Time: 14:19 [facility] 10/13 16:29 Order name: Urine Dipstick--Ancillary (enter results) 10/13 16:29 Order name: Urine --Ancillary (enter results) 10/13 12:37 Order name: IV Saline Lock; Complete Time: 13:41 [facility] 10/13 12:37 Order name: Labs collected and sent; Complete Time: 13:42 [facility] 10/13 12:38 Order name: EKG - Nurse/Tech; Complete Time: 12:46 [facility] 10/13 12:38 Order name: EKG; Complete Time: 12:39 [facility] 10/13 12:38 Order name: Urine Test (obtain specimen); Complete Time: 15:47 [facility] 10/13 12:38 Order name: Urine Dipstick-Ancillary (obtain specimen); Complete Time: 15:47 Administered Medications: 13:00 Drug: NS 0.9% 1000 ml Route: IV; Rate: 1000 ml; Site: right antecubital; bp 13:00 Drug: Demerol 25 mg Route: IVP; Site: right antecubital; bp 15:38 Follow up: Response: No adverse reaction bp 13:00 Drug: Zofran 4 mg Route: IVP; Site: right antecubital; bp 15:39 Follow up: Response: No adverse reaction bp 14:30 Drug: Mefoxin 1 grams Route: IVPB; Infused Over: 30 mins; Site: right antecubital; bp 16:59 Follow up: IV Status: Completed infusion; IV Intake: 100ml bp 15:10 Drug: Flagyl 500 mg Volume: 100 ml; Route: IVPB; Rate: 200 ml/hr; Infused Over: 30 bp mins; Site: right antecubital; 16:58 Follow up: IV Status: Completed infusion; IV Intake: 100ml bp 15:10 Drug: NS 0.9% 1000 ml Route: IV; Rate: 1000 ml; Site: right antecubital; bp 16:58 Follow up: IV Status: Completed infusion; IV Intake: 1000ml bp Disposition: 10/14 13:46 Co-signature as Attending Physician, Benjamin Calles MD I agree with the assessment and kdr plan of care. Disposition: 10/13/18 16:36 Discharged to Home. Impression: Cholelithiasis, Right upper quadrant abdominal tenderness. - Condition is Stable. - Discharge Instructions: Abdominal Pain, Adult, Cholelithiasis. - Prescriptions for Zofran ODT 4 mg Oral tablet,disintegrating - place 1 tablet by TRANSLINGUAL route every 6 hours As needed; 12 tablet. Tylenol- Codeine #3 300-30 mg Oral Tablet - take 2 tablets by ORAL route every 6 hours As needed; 20 tablet. - Medication Reconciliation Form, Thank You Letter, Antibiotic Education, Prescription Opioid Use form. - Follow up: Shawn Quiñonez MD; When: 2 - 3 days; Reason: Recheck today's complaints, Continuance of care, Re-evaluation by your physician. - Problem is new. - Symptoms have improved. Signatures: Dispatcher [employer] EDMS Dhara Brown RN RN aj1 Benjamin Calles MD MD kdr John Fowler PA PA jr8 Ever Worley RN RN bp Corrections: (The following items were deleted from the chart) 10/13 16:59 16:36 10/13/2018 16:36 Discharged to Home. Impression: Cholelithiasis; Right upper bp quadrant abdominal tenderness. Condition is Stable. Forms are Medication Reconciliation Form, Thank You Letter, Antibiotic Education, Prescription Opioid Use. Follow up: Dr. Shawn Quiñonez; When: 2 - 3 days; Reason: Recheck today's complaints, Continuance of care, Re-evaluation by your physician. Problem is new. Symptoms have improved. jr8
[2018-10-13 20:25] VITALS: BP 121/78; TEMP 98; O2SAT 98
== END 2018-10-13 16:59 | disposition home or self-care (01) ==
LOC: ER 12:07
DX: K80.20 Calculus of gallbladder without cholecystitis without obstruction (principal)
CPT/HCPCS: 36415; 76705; 80048; 80076; 81003; 81015; 81025; 83690; 85025; 93005; 96365; 96375; 99284; J2175; J2405; J7030